=== PATIENT | female | born 1980 | race African-American/Black ===

== ENCOUNTER 2022-04-09 14:15 | Emergency (ER) | payer MEDICAID, MEDICARE ==
[~2022-04-09] VITALS: Ht 160 cm; Wt 66.0 kg
[2022-04-09 15:27] LABS: CLARITY URINE CLEAR (CLEAR); COLOR URINE YELLOW (YELLOW); KETONES URINE TRACE (NEGATIVE); LEUKOCYTE ESTERASE URINE NEGATIVE (NEGATIVE); NITRITE URINE NEGATIVE (NEGATIVE); OCCULT BLOOD URINE 3+ (NEGATIVE); PH URINE 5.5 (4.5-8.0); PROTEIN URINE TRACE (NEGATIVE); SPECIFIC GRAVITY URINE 1.024 (1.005-1.030)
[2022-04-09] MEDS ORDERED: NAPR-681 PO (15:56)
[2022-04-09 16:08] VITALS: BP 117/55
== END 2022-04-09 16:10 | disposition home or self-care (01) ==
LOC: ER 15:47
DX: U07.1 COVID-19 (principal); J20.8 Acute bronchitis due to other specified organisms
CPT/HCPCS: 81003; 81025; 99283

== ENCOUNTER 2022-07-11 16:56 | Emergency (ER) | payer MEDICAID ==
[~2022-07-11] VITALS: Ht 160 cm; Wt 69.7 kg
[~2022-07-11 16:56] MED LIST: NAPR-681 PO
[2022-07-11] MEDS ORDERED: ACETAMINOPHEN 325MG TABLET PO STA (19:14)
[2022-07-11] MEDS ORDERED: IBUP-2437 MT (20:07)
[2022-07-11 20:20] VITALS: BP 125/78
== END 2022-07-11 20:20 | disposition home or self-care (01) ==
LOC: ER 16:56
DX: M25.561 Pain in right knee (principal); W06.XXXA Fall from bed, initial encounter; Y93.89 Activity, other specified; Y92.013 Bedroom of single-family (private) house as the place of occurrence of the external cause
CPT/HCPCS: 36415; 73562; 84702; 99284